=== PATIENT | female | born 1985 ===

== ENCOUNTER 2020-02-12 09:04 | Observation (INO) | payer OTHER ==
[~2020-02-12 09:04] MED LIST: Lactated Ringers 1,000 ML IV SCH; Lidocaine 2% 5 ML SDV ONE; Propofol 200 MG/20 ML SDV ONE; Sodium Chloride 0.9% 10 ML SDV IV PRN; Sodium Chloride 0.9% 10 ML Syringe FLUSH PRN; Sodium Chloride 0.9% 2.5 ML Syringe FLUSH PRN; fentaNYL 100 MCG/2 ML SDV ONE
--- NOTE | 2020-02-12 09:38 | PCM.PREANE ---
Preanesthetic Assessment - Anesthesia/Transfusion/Family Hx Anesthesia History: Prior Anesthesia Without Reaction Family History of Anesthesia Reaction: No Transfusion History: No Prior Transfusion(s) Intubation History: Unknown - Review of Systems General: No Symptoms Pulmonary: No Symptoms Cardiovascular: No Symptoms Gastrointestinal: Hematochezia Neurological: No Symptoms Other: Reports: None - Physical Assessment Height: 5 ft 5 in Weight: 167.829 kg ASA Class: 3 Mental Status: Alert & Oriented x3 Airway Class: Mallampati = 2 Dentition: Reports: Normal Dentition Thyro-Mental Finger Breadths: 3 Mouth Opening Finger Breadths: 3 ROM/Head Extension: Full Lungs: Clear to Auscultation, Normal Respiratory Effort Cardiovascular: Regular Rate, Regular Rhythm - Allergies Allergies/Adverse Reactions: Allergies Allergy/AdvReac Type Severity Reaction Status Date / Time egg Allergy Hives Verified 02/06/20 13:49 - Blood Blood Available: No - Anesthesia Plan Pre-Op Medication Ordered: None - Acknowledgements Anesthesia Type Planned: MAC (general anesthesia back-up plan) Pt an Appropriate Candidate for the Planned Anesthesia: Yes Alternatives and Risks of Anesthesia Discussed w Pt/Guardian: Yes Pt/Guardian Understands and Agrees with Anesthesia Plan: Yes PreAnesthesia Questionnaire HEENT History: Reports: Allergic Rhinitis Respiratory History: Reports: Other (See Below) (never been tested for sleep apnea) Gastrointestinal History: Reports: GERD Other Gastrointestinal History: current rectal bleeding Neurological History: Reports: Migraines, Other (See Below) Other Neuro History: hx of motion sickness Endocrine/Metabolic History: Reports: Obesity/BMI 30+ (morbid obesity BMI 61.6) - Past Surgical History Head Surgeries/Procedures: Reports: None HEENT Surgical History: Reports: LASIK GI Surgical History: Reports: Cholecystectomy (10-12 years ago in [place]) - SUBSTANCE USE Smoking Status *Q: Never Smoker Recreational Drug Use History: No - HOME MEDS Home Medications: Home Meds Calcium Carbonate/Vitamin D3 [Calcium 500 mg-Vit D3 600 Unit] 500 mg PO DAILY [History] Cetirizine HCl [Allergy Relief] 10 mg PO DAILY 02/06/20 [History] Cholecalciferol (Vitamin D3) [Vitamin D3] 5,000 unit PO DAILY 02/06/20 [History] Fluticasone Propionate [Flonase Allergy Relief] 1 spray NASBOTH DAILY 02/06/20 [ History] Ketotifen [Ketotifen 0.025% Ophth Soln] 1 drop EYEBOTH ASDIRECTED PRN 02/06/20 [ History] Omeprazole 20 mg PO DAILY 02/06/20 [History] - CURRENT (IN HOUSE) MEDS Current Meds: Current Medications Lactated Ringer's (Ringers, Lactated) 1,000 mls @ 125 mls/hr IV ASDIRECTED WES Sodium Chloride (Saline Flush) 10 ml FLUSH ASDIRECTED PRN PRN Reason: Keep Vein Open Sodium Chloride (Saline Flush) 2.5 ml FLUSH ASDIRECTED PRN PRN Reason: Keep Vein Open Sodium Chloride (Saline Flush) 10 ml FLUSH ASDIRECTED PRN PRN Reason: Keep Vein Open Sodium Chloride (Saline Flush) 2.5 ml FLUSH ASDIRECTED PRN PRN Reason: Keep Vein Open Sodium Chloride (Normal Saline) 10 ml IV ASDIRECTED PRN PRN Reason: IV Use Discontinued Medications Fentanyl (Sublimaze) Confirm Administered Dose 100 mcg .ROUTE .STK-MED ONE Stop: 02/12/20 07:05 Lidocaine (Xylocaine-Mpf 2%) Confirm Administered Dose 5 ml .ROUTE .STK-MED ONE Stop: 02/12/20 07:05 Propofol (Diprivan 20 Ml) Confirm Administered Dose 400 mg .ROUTE .STK-MED ONE Stop: 02/12/20 07:05
[2020-02-12] MEDS ORDERED: Propofol 200 MG/20 ML SDV ONE (10:36)
[2020-02-12] MEDS ORDERED: Ondansetron 4 MG/2 ML SDV IVPUSH PRN (10:58)
--- NOTE | 2020-02-12 11:01 | PCM.OPNOTE ---
- General Post-Op/Procedure Note Date of Surgery/Procedure: 02/12/20 Operative Procedure(s): Diagnostic colonoscopy Findings: Normal appearing colon. Severe obstructive sleep apnea throughout case Pre Op Diagnosis: Changes in bowel habits Post-Op Diagnosis: same Anesthesia Technique: MAC Primary Surgeon: Salome Gatica Condition: Good
--- NOTE | 2020-02-12 11:08 | PCM.SN.2 ---
- Free Text/Narrative Note: Patient is a morbidly obese female (BMI 61.6) who underwent a diagnostic colonoscopy for changes in bowel habits. The colonoscopy was grossly normal. However, the patient has severe, undiagnosed obstructive sleep apnea. She required bipap during the case with high settings (18/10) on 100% oxygen with volumes around 400 and oxygen saturations in the low 90s. She will be admitted for close observation of her respiratory status overnight with continuous oximetry and capnography.
--- NOTE | 2020-02-12 11:41 | PCM.POSTAN ---
POST ANESTHESIA ASSESSMENT - MENTAL STATUS Mental Status: Alert, Oriented - VITAL SIGNS Vital Signs: Last Vital Signs Temp 37.2 C 02/12/20 10:01 Pulse 93 02/12/20 11:35 Resp 12 02/12/20 11:35 BP 119/72 02/12/20 11:35 Pulse Ox 100 02/12/20 11:35 - RESPIRATORY Respiratory Status: Respiratory Rate WNL, Airway Patent, O2 Saturation Stable - CARDIOVASCULAR CV Status: Pulse Rate WNL, Blood Pressure Stable - GASTROINTESTINAL GI Status: No Symptoms - PAIN Pain Score: 0 - POST OP HYDRATION Hydration Status: Adequate & Stable - OBSERVATIONS Free Text/Narrative:: No anesthesia problems.
[2020-02-12] MEDS ORDERED: Acetaminophen 325 MG Tab PO PRN (14:27)
--- NOTE | 2020-02-13 08:30 | PCM.SURGPN ---
- General Info Date of Service: 02/13/20 Date of Surgery/Procedure: 02/12/20 POD#: 1 Functional Status: Reports: Tolerating Diet, Ambulating, Urinating. Denies: New Symptoms - Review of Systems General: Reports: No Symptoms HEENT: Reports: No Symptoms Pulmonary: Reports: No Symptoms Cardiovascular: Reports: No Symptoms Gastrointestinal: Reports: No Symptoms - Patient Data Vitals - Most Recent: Last Vital Signs Temp 36.8 C 02/13/20 04:00 Pulse 92 02/12/20 19:00 Resp 12 02/13/20 07:00 BP 127/74 02/13/20 07:00 Pulse Ox 96 02/13/20 07:00 Weight - Most Recent: 165.731 kg I&O - Last 24 Hours: Intake & Output 02/12/20 02/13/20 02/13/20 22:59 06:59 14:59 Intake Total 900 1000 Output Total 350 1700 Balance 550 -700 Lab Results Last 24 Hrs: Laboratory Results - last 24 hr 02/12/20 Range/Units 09:30 Urine HCG, Qual NEGATIVE (NEGATIVE) Med Orders - Current: Current Medications Acetaminophen (Tylenol) 650 mg PO Q6H PRN PRN Reason: Pain Last Admin: 02/12/20 14:42 Dose: 650 mg Ondansetron HCl (Zofran) 4 mg IVPUSH Q6H PRN PRN Reason: Nausea/Vomiting Sodium Chloride (Saline Flush) 10 ml FLUSH ASDIRECTED PRN PRN Reason: Keep Vein Open Sodium Chloride (Saline Flush) 2.5 ml FLUSH ASDIRECTED PRN PRN Reason: Keep Vein Open Sodium Chloride (Saline Flush) 10 ml FLUSH ASDIRECTED PRN PRN Reason: Keep Vein Open Sodium Chloride (Saline Flush) 2.5 ml FLUSH ASDIRECTED PRN PRN Reason: Keep Vein Open Sodium Chloride (Normal Saline) 10 ml IV ASDIRECTED PRN PRN Reason: IV Use Discontinued Medications Fentanyl (Sublimaze) Confirm Administered Dose 100 mcg .ROUTE .STK-MED ONE Stop: 02/12/20 07:05 Lactated Ringer's (Ringers, Lactated) 1,000 mls @ 125 mls/hr IV ASDIRECTED WES Last Admin: 02/12/20 10:04 Dose: 125 mls/hr Lidocaine (Xylocaine-Mpf 2%) Confirm Administered Dose 5 ml .ROUTE .STK-MED ONE Stop: 02/12/20 07:05 Propofol (Diprivan 20 Ml) Confirm Administered Dose 400 mg .ROUTE .STK-MED ONE Stop: 02/12/20 07:05 Propofol (Diprivan 20 Ml) Confirm Administered Dose 200 mg .ROUTE .STK-MED ONE Stop: 02/12/20 10:37 - Exam General: Alert, Oriented HEENT: Pupils Equal, Pupils Reactive Lungs: Normal Respiratory Effort Cardiovascular: Regular Rate Skin: Warm, Dry, Intact Sepsis Event Note - Evaluation Sepsis Screening Result: No Definite Risk - Focused Exam Vital Signs: Vital Signs Temp Resp BP Pulse Ox 02/13/20 07:00 12 127/74 96 02/13/20 06:00 13 118/71 96 02/13/20 05:00 13 138/91 H 98 02/13/20 04:00 36.8 C 18 132/82 98 02/13/20 03:00 18 130/85 98 02/13/20 02:00 16 131/83 98 02/13/20 01:00 16 133/87 99 02/13/20 00:00 36.2 C 18 138/94 H 98 02/12/20 23:00 12 136/89 98 02/12/20 22:00 13 138/91 H 99 02/12/20 21:00 13 132/88 99 Date Exam was Performed: 02/13/20 Time Exam was Performed: 08:27 - Problem List & Annotations (1) Obstructive sleep apnea hypopnea, severe SNOMED Code(s): 17942457 Code(s): G47.33 - OBSTRUCTIVE SLEEP APNEA (ADULT) (PEDIATRIC) Status: Acute Current Visit: Yes (2) Bowel habit changes SNOMED Code(s): 058940997, 955512871 Code(s): R19.4 - CHANGE IN BOWEL HABIT Status: Acute Current Visit: Yes - Problem List Review Problem List Initiated/Reviewed/Updated: Yes - My Orders Last 24 Hours: Active Orders 24 hr Category Date Time Status Patient Status [ADT] Routine ADT 02/12/20 11:23 Active BIPAP [RT BiPAP/CPAP] [RC] ASDIRECTED Care 02/12/20 10:55 Active Cardiac Monitoring [RC] Q8H Care 02/12/20 10:58 Active Oxygen Therapy [RC] PRN Care 02/12/20 10:58 Active Pulse Oximetry [RC] CONTINUOUS Care 02/12/20 10:58 Active RT Incentive Spirometry [RC] Q1HWA Care 02/12/20 10:58 Active Ready for Discharge [RC] PER UNIT ROUTINE Care 02/13/20 08:25 Ordered Up ad Krista [RC] DAILY Care 02/12/20 10:58 Active Vital Signs [RC] Q1H Care 02/12/20 10:58 Active Regular Diet [DIET] Diet 02/12/20 Lunch Active Acetaminophen [Tylenol] Med 02/12/20 14:27 Active 650 mg PO Q6H PRN Ondansetron [Zofran] Med 02/12/20 10:58 Active 4 mg IVPUSH Q6H PRN Medication Orders Acetaminophen (Tylenol) 650 mg PO Q6H PRN PRN Reason: Pain Last Admin: 02/12/20 14:42 Dose: 650 mg Ondansetron HCl (Zofran) 4 mg IVPUSH Q6H PRN PRN Reason: Nausea/Vomiting Sodium Chloride (Saline Flush) 10 ml FLUSH ASDIRECTED PRN PRN Reason: Keep Vein Open Sodium Chloride (Saline Flush) 2.5 ml FLUSH ASDIRECTED PRN PRN Reason: Keep Vein Open Sodium Chloride (Saline Flush) 10 ml FLUSH ASDIRECTED PRN PRN Reason: Keep Vein Open Sodium Chloride (Saline Flush) 2.5 ml FLUSH ASDIRECTED PRN PRN Reason: Keep Vein Open Sodium Chloride (Normal Saline) 10 ml IV ASDIRECTED PRN PRN Reason: IV Use - Plan Plan (Free Text/Narrative):: Patient was on CPAP all night. States that she didnt feel it helped her sleep. Regardless she plans to see her PCP about scheduling a sleep study. She will follow up in clinic to discuss her biopsy findings.
--- NOTE | 2020-02-13 15:18 | OR ---
SURGEON: SALOME GATICA MD DATE OF PROCEDURE: 02/12/2020 PREOPERATIVE DIAGNOSIS: Change in bowel habits. POSTOPERATIVE DIAGNOSIS: Change in bowel habits. PROCEDURE PERFORMED: Diagnostic colonoscopy with biopsies. PRIMARY SURGEON: Salome Gatica MD. ANESTHESIA: MAC. INSTRUMENT USED: Olympus colonoscope. EXTENT OF EXAM: To the cecum. PREPARATION: Good. LIMITATIONS: None. INDICATIONS FOR EXAMINATION: The patient is a 34-year-old female who has been complaining of frequent loose stools. The decision was made to proceed with a diagnostic colonoscopy. I explained the procedure, expected perioperative course, and the risks including bleeding, infection, or damage to surrounding structures including perforation. The patient verbalized understanding and wishes to proceed. PROCEDURE IN DETAIL: The patient was brought to the OR and placed on the OR table in supine position. A time-out was completed verifying the patient's name, age, date of , allergies, and procedure to be performed. Monitored anesthesia care was induced. Continuous oxygen was provided via nasal cannula throughout the procedure. After adequate sedation was achieved, a digital rectal exam was performed. This exam was within normal limits. A well-lubricated colonoscope was inserted in the rectum and advanced under direct visualization to the level of the cecum. The cecum was identified by both visual and anatomic landmarks. A photograph was taken of the cecal cap as well as with the scope retroflexed within the cecum. The scope was then fully withdrawn while examining the color, texture, anatomy, and integrity of the mucosa from the cecum to the anal canal. The patient's terminal ileum was closely inspected. There was no evidence of any inflammation or changes in the area. The remainder of the colonic mucosa appeared normal. Biopsies were taken of the cecum, transverse colon, and sigmoid colon, and sent to pathology for histologic review. The scope was brought into the rectum and retroflexed to allow visualization of the anal canal opening. This appeared normal and a photograph was taken. The scope was then straightened out and fully withdrawn. The cecum to anus time was 7 minutes. The patient tolerated the procedure well and was transferred to the PACU in stable condition. ENDOSCOPIC DIAGNOSIS: Changes in bowel habits. RECOMMENDATIONS: The patient will follow up in clinic in 2 weeks to review her pathology results and the next steps in treatment. DIAZ / CLARE /[id number]
--- NOTE | 2020-02-16 21:29 | PCM.DCSUM1 ---
Discharge Summary - Hospital Course Free Text/Narrative:: Patient is a 30 year old morbidly obese female who presents for a diagnostic colonoscopy for changes in bowel habits. The case went well but the patient had severe TAMIKO and had to be placed on cpap during and after the case. To monitor her respiratory status post op with pulse oximetry and capnography she was admitted to the ICU. She did well after admission to ICU and was weaned off CPAP. She was placed on it during sleep. She was stable and discharged home the next morning with follow up for an outpatient sleep study. - Discharge Data Discharge Date: 02/13/20 Discharge Disposition: Home, Self-Care 01 Condition: Good - Referral to Home Health Primary Care Physician: PCP Unobtainable - Discharge Diagnosis/Problem(s) (1) Obstructive sleep apnea hypopnea, severe SNOMED Code(s): 88303579 ICD Code: G47.33 - OBSTRUCTIVE SLEEP APNEA (ADULT) (PEDIATRIC) Status: Acute (2) Bowel habit changes SNOMED Code(s): 347226980, [id number] ICD Code: R19.4 - CHANGE IN BOWEL HABIT Status: Acute - Patient Summary/Data Operative Procedure(s) Performed: Diagnostic colonoscopy - Patient Instructions Diet: Regular Diet as Tolerated, Drink 8-10+ Glasses/Day Diet, Other: High fiber diet Activity: Rest and Relax Today Driving: May Drive Today Showering/Bathing: May Shower Notify Provider of: Fever, Increased Pain, Swelling and Redness, Drainage Other/Special Instructions: Visit with PCP about scheduling a sleep study for sleep apnea. - Discharge Plan *PRESCRIPTION DRUG MONITORING PROGRAM REVIEWED*: Not Applicable *COPY OF PRESCRIPTION DRUG MONITORING REPORT IN PATIENT SONIA: Not Applicable Home Medications: Home Meds Calcium Carbonate/Vitamin D3 [Calcium 500 mg-Vit D3 600 Unit] 500 mg PO DAILY [History] Cetirizine HCl [Allergy Relief] 10 mg PO DAILY 02/06/20 [History] Cholecalciferol (Vitamin D3) [Vitamin D3] 5,000 unit PO DAILY 02/06/20 [History] Fluticasone Propionate [Flonase Allergy Relief] 1 spray NASBOTH DAILY 02/06/20 [ History] Ketotifen [Ketotifen 0.025% Ophth Soln] 1 drop EYEBOTH ASDIRECTED PRN 02/06/20 [ History] Omeprazole 20 mg PO DAILY 02/06/20 [History] - Discharge Summary/Plan Comment DC Time >30 min.: No - General Info Functional Status: Reports: Tolerating Diet, Ambulating, Incentive Spirometry. Denies: New Symptoms - Review of Systems General: Reports: No Symptoms HEENT: Reports: No Symptoms Pulmonary: Reports: No Symptoms Cardiovascular: Reports: No Symptoms Gastrointestinal: Reports: No Symptoms Genitourinary: Reports: No Symptoms Musculoskeletal: Reports: No Symptoms - Patient Data Vitals - Most Recent: Last Vital Signs Temp 36.2 C 02/13/20 08:00 Pulse 92 02/12/20 19:00 Resp 16 02/13/20 08:00 BP 129/84 02/13/20 08:00 Pulse Ox 97 02/13/20 08:00 Weight - Most Recent: 165.731 kg Med Orders - Current: Current Medications Discontinued Medications Acetaminophen (Tylenol) 650 mg PO Q6H PRN PRN Reason: Pain Last Admin: 02/12/20 14:42 Dose: 650 mg Fentanyl (Sublimaze) Confirm Administered Dose 100 mcg .ROUTE .STK-MED ONE Stop: 02/12/20 07:05 Lactated Ringer's (Ringers, Lactated) 1,000 mls @ 125 mls/hr IV ASDIRECTED WES Last Admin: 02/12/20 10:04 Dose: 125 mls/hr Lidocaine (Xylocaine-Mpf 2%) Confirm Administered Dose 5 ml .ROUTE .STK-MED ONE Stop: 02/12/20 07:05 Ondansetron HCl (Zofran) 4 mg IVPUSH Q6H PRN PRN Reason: Nausea/Vomiting Propofol (Diprivan 20 Ml) Confirm Administered Dose 400 mg .ROUTE .STK-MED ONE Stop: 02/12/20 07:05 Propofol (Diprivan 20 Ml) Confirm Administered Dose 200 mg .ROUTE .STK-MED ONE Stop: 02/12/20 10:37 Sodium Chloride (Saline Flush) 10 ml FLUSH ASDIRECTED PRN PRN Reason: Keep Vein Open Sodium Chloride (Saline Flush) 2.5 ml FLUSH ASDIRECTED PRN PRN Reason: Keep Vein Open Sodium Chloride (Saline Flush) 10 ml FLUSH ASDIRECTED PRN PRN Reason: Keep Vein Open Sodium Chloride (Saline Flush) 2.5 ml FLUSH ASDIRECTED PRN PRN Reason: Keep Vein Open Sodium Chloride (Normal Saline) 10 ml IV ASDIRECTED PRN PRN Reason: IV Use - Exam General: Reports: Alert, Oriented, Cooperative HEENT: Reports: Pupils Equal, Pupils Reactive Lungs: Reports: Normal Respiratory Effort Cardiovascular: Reports: Regular Rate GI/Abdominal Exam: Soft, Non-Tender, No Distention, No Mass Extremities: Normal Inspection
== END 2020-02-13 08:50 | disposition home or self-care (01) ==
LOC: MW.SDS 09:04 → MW.MS 10:37 → MW.ICU 11:35 → MW.SDS 11:41 → MW.ICU 11:42 → INTOOBSV 12:00 → OBSVTOIN 12:00
PROVIDERS: ADMIT Surgery; ATTEND Surgery
DX: R19.4 Change in bowel habit (principal); G47.33 Obstructive sleep apnea (adult) (pediatric); K62.5 Hemorrhage of anus and rectum; K21.9 Gastro-esophageal reflux disease without esophagitis; I10 Essential (primary) hypertension; E66.01 Morbid (severe) obesity due to excess calories; Z91.012 Allergy to eggs; Z68.44 Body mass index [BMI] 60.0-69.9, adult; Z79.899 Other long term (current) drug therapy
CPT/HCPCS: 45380; 81025; 94660; A9270; J2001; J2704; J3010; J7120; 00811; 88305; G0378